=== PATIENT | male | born 1990 | race Caucasian/White ===

== ENCOUNTER 2022-01-17 23:30 | Emergency (ER) | payer SELFPAY ==
[2022-01-18] MEDS ORDERED: LORazepam 0.5 MG Tab PO ONE (00:43)
== END 2022-01-18 00:58 | disposition home or self-care (01) ==
LOC: MW.ED 23:30
DX: G47.00 Insomnia, unspecified (principal); Z79.899 Other long term (current) drug therapy
CPT/HCPCS: 99283; A9270

== ENCOUNTER 2022-01-18 02:34 | Emergency (ER) | payer SELFPAY | END 2022-01-18 03:24 | disposition left against medical advice (07) | LOC: MW.ED 02:34 | DX: Z53.21 Procedure and treatment not carried out due to patient leaving prior to being seen by health care provider (principal) ==